=== PATIENT | male | born 1960 | race Caucasian/White ===

== ENCOUNTER 2020-06-13 08:42 | Outpatient (CLI) | payer OTHER | END 2020-06-13 08:43 | disposition home or self-care (01) | LOC: CSHWCC 08:42 | PROVIDERS: ATTEND Nurse Practitioner Family | DX: S71.101D Unspecified open wound, right thigh, subsequent encounter (principal); W34.00XD Accidental discharge from unspecified firearms or gun, subsequent encounter | CPT/HCPCS: 11042; 99203; G0463 ==

== ENCOUNTER 2020-06-27 09:54 | Outpatient (CLI) | payer OTHER | END 2020-06-27 09:55 | disposition home or self-care (01) | LOC: CSHWCC 09:54 | PROVIDERS: ATTEND Nurse Practitioner Family | DX: S71.101D Unspecified open wound, right thigh, subsequent encounter (principal); W34.00XD Accidental discharge from unspecified firearms or gun, subsequent encounter | CPT/HCPCS: 99213; G0463 ==